=== PATIENT | female | born 1935 | race Caucasian/White ===

== ENCOUNTER 2016-10-07 14:52 | Inpatient (IN) | payer OTHER ==
[~2016-10-07] VITALS: Ht 157.5 cm; Wt 55.0 kg
[~2016-10-07 14:52] MED LIST: CALCIUM 600 MG1 EAC1 PO; CENTRUM SILVER1 EAC3 PO; DYRENIUM 50 MG50 MG PO; FIBER THERAPY500 MG PO; FISH OIL SOFTG1 EAC2 PO; LOW DOSE ASPIRI81 M1 PO; PRAVACHOL10 MG PO; PRILOSEC20 MG PO; TOPROL XL50 MG PO; XARELTO20 MG PO
[2016-10-07 16:03] LABS: MCH 32.8 PG (29.0-34.0); MCHC 34.4 G/DL (30.0-36.0); MCV 95.3 FL (83-99); PLATELET COUNT 303 K/uL (156-360); RBC DIS.WIDTH-CV 12.9 % (11.8-14.6); RBC DIS.WIDTH-SD 45.7 % (39-53); RED BLOOD COUNT 4.51 M/uL (3.80-5.20)
[2016-10-07 16:12] LABS: INTER. NORMALIZED RATIO 1.1; PROTHROMBIN TIME 10.8 (9.2-11.2)
[2016-10-07 16:15] LABS: CHLORIDE 104 mEq/L (99-109); POTASSIUM 3.9 mEq/L (3.7-5.4); SODIUM 139 mEq/L (136-147)
[2016-10-07 16:17] LABS: GLUCOSE 107 mg/dL (70-99)
[2016-10-07 16:19] LABS: ANION GAP 11 MEQ/L (2-14); TOTAL BILIRUBIN 0.7 mg/dL (0.0-1.0)
[2016-10-07 16:21] LABS: ALKALINE PHOSPHATASE 110 IU/L (3-129); GFR ESTIMATE (CALCULATED) > 59 mL/min/
[2016-10-07 16:22] LABS: UREA NITROGEN (BUN) 14 mg/dL (9-23)
[2016-10-07 16:33] LABS: TROP-I INTERPRETATION NEGATIVE; TROPONIN-I < 0.01 ng/mL (0.0-0.30)
[2016-10-07 16:47] LABS: ADD MIUA? YES; BILIRUBIN NEGATIVE; BLOOD SMALL; COLOR STRAW ((YELLOW)); GLUCOSE (STRIP) NEGATIVE; KETONES 5; LEUKOCYTES NEGATIVE; NITRITE NEGATIVE; PROTEIN (STRIP) NEGATIVE; UROBILINOGEN 0.2 MG/DL (0.2-1.0)
[2016-10-07 16:54] LABS: BACTERIA NONE SEEN /HPF; EPITHELIAL CELLS RARE /HPF; MUCUS TRACE /LPF; RED BLOOD CELLS 0-5 /HPF (0-5); WHITE BLOOD CELLS 0-5 /HPF (0-5)
[2016-10-07] MEDS ORDERED: XARELTO20 MG PO (17:25)
[2016-10-07] MEDS ORDERED: METOPROLOL SUCC50 MG PO (17:26)
[2016-10-07] MEDS ORDERED: CALCIUM 500 +1 EACH PO (17:27)
[2016-10-07] MEDS ORDERED: FISH OIL 1,0001 EAC7 PO (17:27)
[2016-10-07 19:37] VITALS: BP 165/81
[2016-10-07 20:32] LABS: SAMPLE HEMOLYSIS CHECK 0; SAMPLE ICTERIC CHECK 0; SAMPLE LIPEMIA CHECK 0
[2016-10-07 20:37] LABS: Estimated Average Glucose 111 mg/dL (70-123); HEMOGLOBIN A1c (GLYCOHEMOGLOB) 5.5 % HGB (Below 5.7)
[2016-10-07 20:37] LABS: HDL CHOLESTEROL 78 MG/DL (Desirable>=50); LDL CHOLESTEROL 224 mg/dL (Desirable<100); NON-HDL CHOLESTEROL 265 mg/dL (Desirable<160); TOTAL CHOLESTEROL 343 mg/dL (Desirable<200); TRIGLYCERIDES 205 MG/DL (Normal: <150)
[2016-10-08] VITALS: BP 124/64
[2016-10-08 03:48] VITALS: BP 133/70
[2016-10-08 07:48] LABS: BASOPHIL COUNT 0.1 K/uL (0-0.1); EOSINOPHIL COUNT 0.1 K/uL (0-0.3); HEMATOCRIT 38.2 % (36.0-46.0); IMMATURE GRANULOCYTE (%) 0.3 % (0.0-0.7); INSTRUMENT ABS NEUTROPHIL CT 3.5 K/uL; LYMPHOCYTE COUNT 2.7 K/uL (1.0-2.8); MCH 33.4 PG (29.0-34.0); MCHC 34.6 G/DL (30.0-36.0); MCV 96.7 FL (83-99); MEAN PLAT.VOLUME 9.2 uM^3 (9.5-12.4); MONOCYTE (%) 8.2 % (3-12); MONOCYTE COUNT 0.6 K/uL (0-0.8); NEUTROPHIL (%) 49.6 % (45-76); NEUTROPHIL COUNT 3.5 K/uL (1.8-6.4); PLATELET COUNT 272 K/uL (156-360); RBC DIS.WIDTH-CV 13.1 % (11.8-14.6); RED BLOOD COUNT 3.95 M/uL (3.80-5.20)
[2016-10-08 07:54] VITALS: BP 145/73
[2016-10-08 11:28] VITALS: BP 144/74
[2016-10-08 15:01] VITALS: BP 116/56
[2016-10-08] MEDS ORDERED: PRAVACHOL20 MG PO (16:45)
[2016-10-08 20:25] VITALS: BP 146/74
[2016-10-09 03:42] VITALS: BP 115/64
[2016-10-09 07:57] VITALS: BP 120/66
[2016-10-09] MEDS ORDERED: LO-DOSE ASPIRIN81 M2 PO (10:42)
== END 2016-10-09 12:07 | disposition home or self-care (01) | DRG 72 ==
LOC: EME 14:52 → EDOF 18:37 → 5SOUTH 19:34
PROVIDERS: Emergency Medicine; Internal Medicine Nephrology
DX: G45.4 Transient global amnesia (principal); I48.91 Unspecified atrial fibrillation; Z79.01 Long term (current) use of anticoagulants; I25.10 Atherosclerotic heart disease of native coronary artery without angina pectoris; I10 Essential (primary) hypertension; E78.5 Hyperlipidemia, unspecified; Z85.3 Personal history of malignant neoplasm of breast
CPT/HCPCS: 70450; 70544; 70545; 70551; 71020; 80048 91; 80053; 80061; 81003; 83036; 84484; 85025; 85027; 85610; 85730; 93005; 93880; 99281; 99285